=== PATIENT | male | born 1940 | race Caucasian/White ===

== ENCOUNTER 2016-08-30 17:22 | Observation (INO) | payer OTHER, MEDICARE ==
[~2016-08-30] VITALS: Ht 162.6 cm; Wt 120.8 kg
[2016-08-30] VITALS (8 sets, daily range): BP systolic 125–158; BP diastolic 36–64; PULSE 57–68; RESP 16–24; O2SAT 96–98
[2016-08-30 19:00] LABS: INR 1.86 ratio
[2016-08-30] MEDS ORDERED: Norepineph 8,000 mCg/250 mL NS 8,000 MCG in IV Premix 1 EACH IV SCH (20:06)
[2016-08-30 20:08] LABS: BASOPHILS % (AUTO) 0.2 % (0-3); EOSINOPHILS % (AUTO) 1.6 % (0-5); MONOCYTES % (AUTO) 12.5 % (4-12); Mean Corpuscular Hemoglobin 31.2 pg (27.0-35.0); Mean Corpuscular Volume 93.2 fL (81-100); NEUTROPHILS % (AUTO) 59.9 % (40-74); Platelet Count 364 bil/L (150-400)
--- NOTE | 2016-08-30 20:10 | ED.REPORT ---
HPI-Facial Injury Date of Service Aug 30, 2016 ED Provider: Calderon Williamson MD History of Present Illness: There is no template for nosebleed in the system, so this template was used. A 76 year old male with a medical history including CHF, sleep apnea on BiPAP, diabetes, hypertension, and atrial fibrillation on Coumadin s/p CABG presents to the ED with bilateral epistaxis onset spontaneously at 1500 this afternoon, while watching TV. The patient has had similar symptoms in the past associated with elevated Coumadin levels. The patient's last INR was measured two weeks ago at 2.8. The patient also reports recent cough and nasal congestion. He denies chest pain, dizziness, lightheadedness, or other symptoms. Nursing Notes Stated Complaint: NOSE BLEED/PT ON BLOOD THINNERS Chief Complaint: ENT & Mouth Nursing Notes Reviewed: Yes ([employer] not reconciled, on warfarin) Allergies: Coded Allergies: Penicillins (Verified Allergy, Unknown, 08/30/16) Scheduled Aspirin Chew (Aspirin Chew) 81 Mg Chew 81 MG PO DAILY Insulin Aspart (NovoLOG U100 Insulin Vial) 100 U/Ml U 15 UNIT SUBQ TIDWM Insulin Glargine (Lantus U100 Insulin Vial) 100 Unit/Ml Vial 60 UNIT SUBQ HS Warfarin Sodium (Warfarin Sodium) 5 Mg Tablet 5 MG PO DAILY General Time Seen by Provider: 19:51 Chief Complaint Nose bleed Hx Obtained From: Patient Arrived By: Walk-in Onset Occurred: 5 - 8 hours ago Symptom Duration: Since onset Severity: Current: No pain currently Severity: Maximum: No pain Immunizations: Unknown Recent Healthcare: No recent doctor visit Similar Sx Previous: Yes Past Medical History Past Medical History CHF Atrial Fibrillation on warfarin Sleep Apnea on BIPAP Reports: Diabetes mellitus, Hypertension Past Surgical History TURP 4 way CABG Spleenectomy Neck fusion Smoking History Unknown if Ever Smoker Social History Other Social History: Good social support Ambulatory Status Independent Review of Systems Constitutional: Denies: Fever Ears / Nose / Throat: Reports: Nasal congestion, Nose bleeding Neurologic: Denies: Dizziness, Lightheaded Complete sys rev & neg: except as marked. Respiratory: Reports: Non-productive cough, Denies: Shortness of breath Cardiovascular: Denies: Chest pain GI: Denies: Diarrhea, Vomiting Physical Exam Initial Vital Signs Vital Signs (First) Date Time Temp Pulse Resp B/P Pulse Ox O2 Delivery O2 Flow Rate FiO2 08/30/16 17:25 37.0 69 19 158/62 97 Room Air Initial VS: Reviewed, Vital signs normal (mild HTN) Respiratory: Breath sounds normal, Clear to auscultation, No respiratory distress Skin: Warm, Dry, No cyanosis Psychiatric: Mood/affect normal, Behavior normal, Normal thought content Head / Eyes: Atraumatic, Normocephalic ENT: Airway patent, Mucous membranes moist Dried blood present on both nostrils Both nostrils packed Left nare bleeding after removal of packing Neck: Supple, Full range of motion, No adenopathy Neurologic: Oriented X3, Speech NL, No motor deficits, No sensory deficits General/Constitutional: Awake, Alert Appearance / Presentation: Positive: Obese Cardiovascular: Heart rate NL, Heart sounds NL, No murmurs Heart Rate / Rhythm: Positive: Irregular rhythm Lower Ext Edema: Positive: Bilateral 2+ (With bilateral compression stockings) Interpretation & Diagnostics Lab Results Interpretation Result Diagram: 08/30/16182608/30/161826 Test 08/30/16 18:27 White Blood Count 12.8th/mm3 (3.8-10.1) Red Blood Count 4.58mil/mm3 (4.40-5.80) Hemoglobin 14.3g/dL (13.8-17.2) Hematocrit 42.7% (41.0-50.0) Mean Corpuscular Volume 93.2fL (81-100) Mean Corpuscular Hemoglobin 31.2pg (27.0-35.0) Mean Corpuscular Hemoglobin Concent 33.5% (32.0-37.0) Red Cell Distribution Width 14.5% (12.3-15.4) Platelet Count 364bil/L (150-400) Neutrophils (%) (Auto) 59.9% (40-74) Lymphocytes (%) (Auto) 25.6% (14-46) Monocytes (%) (Auto) 12.5% (4-12) Eosinophils (%) (Auto) 1.6% (0-5) Basophils (%) (Auto) 0.2% (0-3) Prothrombin Time 20.2sec (8.1-12.5) Prothromb Time International Ratio 1.86ratio Sodium Level 133mEq/L (134-144) Potassium Level 4.8mEq/L (3.5-5.2) Chloride Level 99mEq/L (97-108) Carbon Dioxide Level 20mmol/L (18-29) Blood Urea Nitrogen 21mg/dL (8-27) Creatinine 1.06mg/dL (0.76-1.27) Estimat Glomerular Filtration Rate 72mL/min (>59) Glucose Level 126mg/dL (60-99) Calcium Level 9.0mg/dL (8.5-10.1) Total Bilirubin 0.4mg/dL (0.0-1.2) Aspartate Amino Transf (AST/SGOT) 28U/L (0-50) Alanine Aminotransferase (ALT/SGPT) 22U/L (0-44) Alkaline Phosphatase 66U/L (25-160) Total Protein 7.6g/dL (6.4-8.4) Albumin 4.0g/dL (3.4-5.0) Hold Singleton Top Tube Received (Received) Lab Results Interpretation: C positive leukocytosis CMP normal INR elevated, technically subtherapeutic in setting of atrial fibrillation-however is coagulopathic in the setting of hemorrhage ECG Interpretation ECG Interpretation: Rate controlled atrial fibrillation at 59 No prior available for comparison Time: 20:59 Interpreted by: ED physician X-Ray Chest Interpretation Chest Xray Interpretation: no Acute disease or CHF is evident on my interpretation of the chest x-ray Interpretation / Wet Read by: Wet read ED physician Procedures Epistaxis Management Epistaxis Management: Bupivacaine .5% with Epinephrine Time: 20:40 Procedure Performed by: ED physician Consent / Setup / Site Prep: Consent from patient, Time-out performed, Pulse oximeter applied, Hand hygiene observed, Stand sterile technique Side and Location of Bleed: Nares both - unknown Post-Procedure / Complications: Bleeding stopped, No complications, Patient stable, Tolerated procedure well Re-Eval/Medical Decision Med Decision/Clinical Course This note and addendum was dictated as [employer] unlimited crashed entirely during the patient's ED stay This is a 76-year-old male with a history of CHF, chronic atrial ablation on warfarin, and sleep apnea who presents with acute onset of epistaxis from both nostrils earlier today. He is managing at a stop by stuffing packing in both nostrils, and has no additional complaints. Denies any recent trauma. Removal of the packing, the period there was some ongoing bleeding, and this improved with the application of oxymetazoline and bupivacaine with epinephrine via mucosal atomization device. Hemostasis was obtained. However the patient' s at high risk given his use of BiPAP, he is only anticoagulated secondary to a history of atrial fibrillation, and therefore is a candidate for temporary reversal so I will healing-given the strong risk of recurrence in the setting of CPAP use. However the patient's CHF history, the administration of FFP is going to be slow -and plan as an observation admission overnight. Case is discussed the hospitalist. Patient's admitted in stable condition He is to receive furosemide in between units of FFP. Source of Hx: Old records Re-Evaluation/Progress #1: Time of Eval: 20:40 Patient Status: Condition improved Re-Evaluation/Progress Note: Patient rechecked. Epistaxis management performed. Re-Evaluation/Progress #2: Time of Eval: 22:54 Patient Status: Condition improved Re-Evaluation/Progress Note: Discussed with patient lab results, diagnosis, and plan for admit. Patient agrees with plan for care and all questions were addressed. Consultation : Referral / Consult Name: Josiane Matute DO Consulted With: Hospitalist Call Returned at: 22:39 Finishing Manager: Agrees with eval, Agrees with plan, Accepts admit Counseled Regarding: Diagnosis, Lab results, Need for admission Discharge & Departure Impression: Primary Impression: Epistaxis Additional Impressions: Atrial fibrillation Atrial fibrillation type: chronic Qualified Code: I48.2 - Chronic atrial fibrillation Anticoagulated Bleeding on Coumadin Disposition: ADMITTED TO HOSPITAL Discharge Condition All VS Reviewed: Yes Condition: Improved Referrals: OTHER,PHYSICIAN (PCP) (Family) Scribe Attestation Portions of this note were transcribed by Janeth Mcguire. I, Dr. Williamson, personally performed the history, physical exam, and medical decision-making; I reviewed and confirmed the accuracy of the information in the transcribed note. Signed by: Charlene Mensah, 08/30/2016, 23:45 Calderon Williamson MD Aug 30, 2016 20:10 JANETH MCGUIRE Aug 30, 2016 20:44
[2016-08-30] MEDS ORDERED: Bupivacaine 0.5%/EPI 50 mL Inj ONE (20:12)
[2016-08-30] MEDS ORDERED: Furosemide 10 mg/mL 4 mL Inj IVPUSH ONE (22:30)
[2016-08-30] MEDS ORDERED: Alum-Mag Hydrox-Simeth 30 mL Suspension PO PRN (22:40)
[2016-08-30] MEDS ORDERED: Polyethylene Glycol (PEG) 17 Gm Powder PO PRN (22:40)
[2016-08-30] MEDS ORDERED: Ondansetron 2 mg/mL 2 mL Inj IVPUSH PRN (22:40)
[2016-08-30] MEDS ORDERED: INSU100V7 SUBQ (23:40)
[2016-08-30] MEDS ORDERED: WARF5TAB7 PO (23:41)
[2016-08-30] MEDS ORDERED: ASPI81TA3 PO (23:41)
[2016-08-30] MEDS ORDERED: INSU100C8 SUBQ (23:41)
[2016-08-31] VITALS (7 sets, daily range): BP systolic 147–179; BP diastolic 69–81; PULSE 60–87; RESP 18–20; O2SAT 95
--- NOTE | 2016-08-31 | ER ---
[address] [address] EMERGENCY DEPT ADMIT NOTE PATIENT: JACQUELINE BONDS : 1940 MR#: [id number] ADMIT: 08/30/2016 JOB ID: [id number] DATE: 08/30/2016 This is an addendum to the emergency department as the [facility] system is down and I am unable to access my previous records. BRIEF HISTORY: This is a 76-year-old male, anticoagulated on warfarin secondary to a history of atrial fibrillation who also has a history of congestive heart failure as well as sleep apnea requiring BiPAP at night. He developed a spontaneous nosebleed earlier this afternoon. This persisted for several hours. He denies any recent trauma, denies recent infection, and reports his INR was on the high end of normal at 2.8 in recent weeks, but he has not been particularly supratherapeutic. He denies other episodes of bleeding and has no additional complaints. PHYSICAL EXAMINATION: On exam, he is in no distress, he does have both nares plugged with blood-soaked gauze, but there is not active epistaxis initially, however, there is bleeding when the gauze is removed. The rest of the exam is notable for 2+ edema of the lower extremities and findings of mild congestive heart failure, he is in rate controlled atrial fibrillation. EMERGENCY DEPARTMENT COURSE: The patient received oxymetazoline plus bupivacaine with epinephrine via mucosal atomization device, with initial cessation of the bleeding, but is obviously at high risk given his use of BiPAP for recurrence. Given his only indication for the warfarin is atrial fibrillation, given active bleeding the plan is reversal. The patient's INR is subtherapeutic, but still enough to cause coagulopathy with an INR of 1.86-therefore the patient is receiving 2 units of FFP. He began the transfusion and started having just trace shortness of breath-he appeared well, had no ischemic findings on EKG, the rate was slowed and he received a dose of furosemide and continued to do well-but will require multiple hours to receive his FFP reversal and observation. He is therefore being admitted for continued management. The case has been discussed with the hospitalist. ADMISSION DIAGNOSES: 1. Epistaxis. 2. Coagulopathy secondary to anticoagulation with warfarin. 3. Chronic atrial fibrillation.
[2016-08-31 00:14] LABS: APPEARANCE,URINE CLEAR (CLEAR,HAZY); COLOR,URINE STRAW (YELLOW); OCCULT BLOOD,URINE NEGATIVE (NEGATIVE); UROBILINOGEN,URINE NORMAL (NORMAL)
--- NOTE | 2016-08-31 01:29 | NUR ---
Admit to 1008 Arrived from ED alert and fully oriented, complains of recent short term memory losses, will bring in med list in am. Able to ambulate safely to BR with SBA, some mild balance issues; per pt this is related to history of neck surgery. Denies pain. FFP infusing. Pt uses CPAP at home, will bring if staying more nights; pulse ox in place tonight. Oriented to hospital routines, plan of care, hourly rounding ongoing.
--- NOTE | 2016-08-31 02:41 | PCM.HPMED ---
Subjective Date of Service Aug 31, 2016 Primary Provider: Admitting Physician: Josiane Matute DO Primary Care Physician: Other,Physician Attending Physician: Josiane Matute DO Admit Status: From the Emergency Department Chief Complaint: epistaxis History of Present Illness: 76yoM with past medical history of CAD s/p CABG, CHF, atrial fibrillation on coumadin, ROWDY using bipap, DM and HTN presented with 3 episodes of epistaxis while at home. Patient states that he was watching TV the afternoon prior to admission when he began to have issues with his nose bleeding. In previous interview states that he has had similar difficulties in the past like this while anticoagulated but when asked following admission patient denied prior epistaxis. He was able to stop the bleeding the first two times but the third time he decided to come to the emergency department for further evaluation. Bleeding was successfully stopped with oxymetazoline plus bupivacaine with epinephrine. Given patient is at high risk for rebleed d/t use of bipap patient was admitted. He denies any associated symptoms at this time and only endorses a chronic cough which has been present for 2-3 months. Review of Systems: complete review of systems obtained. positive as per hpi otherwise negative Allergies Coded Allergies: Penicillins (Verified Allergy, Unknown, 08/30/16) Home Medications medication rec pending. to bring in medications partial list Glargine 60 units every evening ASA Warfarin PMH CHF Atrial Fibrillation on warfarin Sleep Apnea on BIPAP Diabetes mellitus Hypertension CAD Surgical History TURP 4 way CABG Splenectomy Neck fusion Cholecystectomy Family History No family history of bleeding / clotting disorders Mother: DM Father: CAD, MD, BPH Social History Occupation: retired Hx Alcohol Use: No Hx Substance Use: No Smoking Status: Former Smoker Living Arrangement: with Family (lives with and granddaughter) Exam Vital Signs Vital Sign - Last Date Time Temp Pulse Resp B/P Pulse Ox O2 Delivery O2 Flow Rate FiO2 08/31/16 00:57 60 08/31/16 00:39 36.4 20 179/69 95 Room Air Intake and Output 08/30/16 08/30/16 08/31/16 Cumulative From/Thru 15:00 23:00 07:00 08/30/16 17:25 - 08/31/16 00:40 Intake Total 191 ml 191 ml Output Total 525 ml 525 ml Balance -334 ml -334 ml Intake IV Total 191 ml 191 ml Output Urine Total 525 ml 525 ml Exam General: Alert, Oriented X3, Cooperative, No acute Distress Eyes: PERRLA, Scleral Anicteric Mouth: Mouth Normal, Mucous Membranes Moist/[place] Neck: Supple, no Thyromegaly, trachea central. Chest & Lungs: Clear to auscultation & percussion, No adventitious breath sounds, no crackles, no wheeze Cardiovascular: Normal S1, Normal S2, No Murmurs/Rubs/Gallops, Regular Rate/ Rhythm, Murmur, Pulses: Radial (present and equal), Dorsalis Pedi (present and equal) Abdomen: Soft, Non-tender, Non-distended, Normoactive bowel tones. Musculoskeletal: Unremarkable. Normal range of motion, no swollen or erythematous joints Extremities: 0-1+ pitting edema bilaterally, no cyanosis, no clubbing. Skin: No rashes. Warm and dry, no erythematous areas Neurological: Grossly neurologically intact, Normal Speech, Sensation Intact Lymphatic: Lymph nodes Cervical and Axillary not palpable. Lab and Diagnostics Result Diagram: 08/30/16182608/30/161826 Assessment & Plan 76yoM with past medical history of CAD s/p CABG, CHF, atrial fibrillation on coumadin, ROWDY using bipap, DM and HTN presented with 3 episodes of epistaxis while at home. Epistaxis, acute, POA -controlled in ED -2 units FFP given in ED -admit for observation -repeat INR in am - will likely increase following FFP admin -holding warfarin for now Atrial fibrillation, chronic -patient on warfarin at home -decision will need to be made regarding continuation of warfarin -repeat INR pending with am labs CAD, chronic -continue ASA -home meds pending list from ROWDY, chronic -on bipap at home - to bring from home if remains in hospital Diabetes Type II, insulin dependent, chronic -patient currently controlled with insulin -takes 15units preprandial and 60units glargine every evening, continue glargine -medium dose SSI HTN, chronic -continue medications as appropriate when med rec complete Pain Evaluation: Adequate Pain Control GI Prophylaxis: Not indicated VTE Prophylaxis Indicated: Contraindicated VTE Prophylaxis: SCDs VTE Mechanical Devices: Anti-Embolic stockings Resuscitation Status: CPR: Attempt Resuscitation Josiane Matute DO Aug 31, 2016 02:41
[2016-08-31] MEDS ORDERED: Glucose 40% Oral Gel 15 Gm Tube PO PRN (03:45)
[2016-08-31 06:38] LABS: BASOPHILS % (AUTO) 0.2 % (0-3); EOSINOPHILS % (AUTO) 1.7 % (0-5); MONOCYTES % (AUTO) 11.8 % (4-12); Mean Corpuscular Hemoglobin 31.4 pg (27.0-35.0); Mean Corpuscular Volume 93.9 fL (81-100); NEUTROPHILS % (AUTO) 65.8 % (40-74); Platelet Count 315 bil/L (150-400)
[2016-08-31 07:15] LABS: INR 1.4 ratio
[2016-08-31] MEDS: Insulin LISPRO 300 Unit/3 mL Inj SUBQ SCH ×4 (08:35→22:40)
--- NOTE | 2016-08-31 09:28 | DRSVH ---
PROCEDURE: X-RAY CHEST ONE VIEW, PORTABLE ([id number]) INDICATIONS: CONGESTIVE HEART FAILURE TECHNIQUE: One view of the chest was acquired. COMPARISON: None. FINDINGS: Surgical changes and devices: Lower cervical spine fixation hardware and median sternotomy wires. Lungs and pleura: No pleural effusions or pneumothorax. Diffuse bilateral interstitial opacities ar e present of unclear chronicity. Mediastinum: Mediastinal contours appear normal. Heart size is enlarged. Bones and chest wall: No suspicious bony lesions. Overlying soft tissues appear unremarkable. IMPRESSION: Interstitial opacities of unclear acuity. Acute CHF cannot be excluded and clinical elio elation is recommended. Dictated by: Raphael Shea [facility] Interpreted: Pam Cannon MD on 08/31/2016 at 9:27 Transcribed by: DAREN on 08/31/2016 at 9:28 Approved by: Pam Cannon M.D. on 09/02/2016 at 16:03
--- NOTE | 2016-08-31 10:24 | PCM.DIMED ---
Discharge Instructions Date of Service Aug 31, 2016 Dates of Hospitalization Aug 30, 2016 at 22:27 Discharge Diagnosis Discharge Diagnosis minor episode of Epistaxis in the setting of aspirin, coumadin use Medication Instructions please hold aspirin and Coumadin given your recurrent bleeding. \ Diet No restrictions Activity No restrictions Patient Instructions You were hospitalized with episode of bleeding, resolved with treatment, but recurrent during hospitalization. Please note that options are limited to stop the bleeding completely in the hospital. Therefore, You were scheduled to see Dr.Gary Kimbrough at [facility] at 3:40pm, . Please note that you have to hold coumadin and aspirin tonight, and follow up with ENT doctor tomorrow. Follow-up plan Please see your doctor in [facility] in next week. Follow-up Provider: ALIRIO-JOSE [facility]SU Follow-up with PCP in: 1 week Provider: Frandy Kimbrough MD Follow-up in: Other (tomorrow) Ruthie Conway MD Aug 31, 2016 10:24
--- NOTE | 2016-08-31 11:41 | NUR ---
Social Work- Initial Assessment Data: See Initial Assessment. Pt is a 76 year old male admitted 08/30/16 or epistaxis per H&P. Pt's insurance is [employer] and [employer] Pt's PCP is Jono Blevins MD at the [facility]. GUILHERME met with patient and family at bedside regarding discharge planning, SW role explained. Pt alert and oriented x3. Pt resides in [place] with his and granddaughter where he remains independent with his ADLs. Pt uses no DME and does not drive. Pt has no HH or SNF history. Pt has LTC insurance and VA benefits. SW spoke with pt regarding DPOA, encouraged pt to complete paperwork. Pt to discharge home with to transport via POV. SW left phone number on whiteboard. No anticipated discharge needs. SW will continue to follow. Assessment: Pt who is independent at base. Plan: Pt to discharge home with to transport via POV. No anticipated discharge needs. GUILHERME will continue to follow. CHRISTY Girffith Addendum: 08/31/16 at 1144 by VIPUL DAWKINS Amended: Links added.
--- NOTE | 2016-08-31 11:45 | NUR ---
Social Work- Discharge Data: EMR reviewed. Pt is on day 1 of hospitalization for epistaxis per H&P. Pt to discharge today. Pt to discharge home with to transport via POV. No discharge needs. Assessment: Pt who is independent at base. Plan: Pt to discharge home with to transport via POV. No discharge needs. CHRISTY Griffith
[2016-08-31] MEDS ORDERED: Phytonadione (Adult) 10 mg/1 mL Inj PO ONE (15:40)
--- NOTE | 2016-08-31 20:28 | NUR ---
Epistaxis Patient was to be discharged home today but then developed epistaxis again after blowing his nose. Bleeding was difficult to stop and when I checked his gauze packing his nose started to bleed again. Patient repack per Dr's orders with Afrin soaked gauze. Patient has moderate amount bleeding noted but has stopped currently so packing not touched at this time. Oncoming nurse will monitoring any further bleeding. Patient has appointment with ENT tomorrow.
[2016-08-31] MEDS ORDERED: Insulin GLARgine 100 Unit/mL Syringe SUBQ SCH (21:00)
[2016-09-01 04:02] VITALS: BP 164/77; PULSE 75; RESP 20; O2SAT 96
--- NOTE | 2016-09-01 04:52 | NUR ---
epistaxis the packing that was placed in pts nose by dayshift yesterday has been left in place. the packing in the R nares does appear saturated but there has not appeared to be any new bleeding this shift. Nurse did not remove packing as pt was afraid that would dislodge the clot and start the bleeding again. will continue to monitor.
[2016-09-01 06:19] LABS: BASOPHILS % (AUTO) 0.3 % (0-3); EOSINOPHILS % (AUTO) 2.2 % (0-5); MONOCYTES % (AUTO) 12.7 % (4-12); Mean Corpuscular Hemoglobin 31.4 pg (27.0-35.0); Mean Corpuscular Volume 94.5 fL (81-100); NEUTROPHILS % (AUTO) 61.4 % (40-74); Platelet Count 320 bil/L (150-400)
[2016-09-01 06:33] LABS: INR 1.22 ratio
[2016-09-01] MEDS: Insulin LISPRO 300 Unit/3 mL Inj SUBQ SCH (08:00)
--- NOTE | 2016-09-01 15:04 | PCM.PNMED ---
Subjective Date of Service Aug 31, 2016 Subjective pt had recurrent nose bleeding, packed with sterile gauze with afrin Exam Vital Signs Vital Sign - Last Date Time Temp Pulse Resp B/P Pulse Ox O2 Delivery O2 Flow Rate FiO2 08/31/16 13:33 36.3 66 18 168/81 95 Room Air Intake and Output 08/30/16 08/30/16 08/31/16 Cumulative From/Thru 15:00 23:00 07:00 08/30/16 17:25 - 08/31/16 06:40 Intake Total 1206 ml 1206 ml Output Total 1675 ml 1675 ml Balance -469 ml -469 ml Intake Oral 800 ml 800 ml IV Total 191 ml 191 ml FFP 215 ml 215 ml Output Urine Total 1675 ml 1675 ml # Bowel Movements 0 0 Exam comfortable, NAD MMM, no JVD, no LAD RRR, nl s1 s2 no mrg CTAB, no w,c S,ND,NT,BS+ warm, no edema bilateral nostril-packed IVs and Medications Medications Reviewed: Medications were reviewed in detail Lab and Diagnostics Result Diagram: 08/31/16 0616 08/31/16 0616 Assessment & Plan 76yoM with past medical history of CAD s/p CABG, CHF, atrial fibrillation on coumadin, ROWDY using bipap, DM and HTN presented with 3 episodes of epistaxis while at home. Epistaxis, acute, POA -controlled in ED -2 units FFP given in ED -admit for observation -repeat INR in am - will likely increase following FFP admin -holding warfarin for now Atrial fibrillation, chronic -patient on warfarin at home -decision will need to be made regarding continuation of warfarin -repeat INR pending with am labs CAD, chronic -continue ASA -home meds pending list from ROWDY, chronic -on bipap at home - to bring from home if remains in hospital Diabetes Type II, insulin dependent, chronic -patient currently controlled with insulin -takes 15units preprandial and 60units glargine every evening, continue glargine -medium dose SSI HTN, chronic -continue medications as appropriate when med rec complete GI Prophylaxis: Not indicated VTE Prophylaxis: SCDs VTE Mechanical Devices: Intermittant Pneumatic CD Resuscitation Status: CPR: Attempt Resuscitation Time spent 35min Ruthie Conway MD Aug 31, 2016 15:43
--- NOTE | 2016-09-01 15:08 | NUR ---
Discharge Patient discharged home with . Patient to follow up with ENT Dr today at 3:40 pm. Patient given verbal and written home care instructions and agreed to understanding them. Pt still gauze packing to left nostril and this was left in place for ENT to remove . Pt will also follow up with primary Dr in 1 week. No new Meds.
--- NOTE | 2016-09-01 15:17 | PCM.DC.MED ---
Discharge Summary Date of Service Sep 01, 2016 Dates of Hospitalization Date of Hospital Admission Aug 30, 2016 at 22:27 Date of Discharge: Sep 01, 2016 Providers: Admitting Physician: Josiane Matute DO Primary Care Physician: Other,Physician Attending Physician: Josiane Matute DO Diagnosis at Time of Discharge Diagnosis at Time of Discharge acute problems 1.minor episode of Epistaxis in the setting of aspirin, coumadin use chronic problems 2.Atrial fibrillation 3.CAD, 4.ROWDY, 5.Diabetes Type II 6.HTN, Consultations ENT Dr.Gary Kimbrough. Procedures XRay, CTs & MRIs PROCEDURE: X-RAY CHEST ONE VIEW, PORTABLE ([id number]) INDICATIONS: CONGESTIVE HEART FAILURE TECHNIQUE: One view of the chest was acquired. COMPARISON: None. FINDINGS: Surgical changes and devices: Lower cervical spine fixation hardware and median sternotomy wires. Lungs and pleura: No pleural effusions or pneumothorax. Diffuse bilateral interstitial opacities are present of unclear chronicity. Mediastinum: Mediastinal contours appear normal. Heart size is enlarged. Bones and chest wall: No suspicious bony lesions. Overlying soft tissues appear unremarkable. IMPRESSION: Interstitial opacities of unclear acuity. Acute CHF cannot be excluded and clinical correlation is recommended. Dictated by: Raphael Shea RRMartha Interpreted: Pam Cannon MD on 08/31/2016 at 9:27 Transcribed by: DAREN on 08/31/2016 at 9:28 Brief History HPI obtained by on 08/30 76yoM with past medical history of CAD s/p CABG, CHF, atrial fibrillation on coumadin, ROWDY using bipap, DM and HTN presented with 3 episodes of epistaxis while at home. Patient states that he was watching TV the afternoon prior to admission when he began to have issues with his nose bleeding. In previous interview states that he has had similar difficulties in the past like this while anticoagulated but when asked following admission patient denied prior epistaxis. He was able to stop the bleeding the first two times but the third time he decided to come to the emergency department for further evaluation. Bleeding was successfully stopped with oxymetazoline plus bupivacaine with epinephrine. Given patient is at high risk for rebleed d/t use of bipap patient was admitted. He denies any associated symptoms at this time and only endorses a chronic cough which has been present for 2-3 months. Hospital Course 76yoM with past medical history of CAD s/p CABG, CHF, atrial fibrillation on coumadin, ROWDY using bipap, DM and HTN presented with 3 episodes of epistaxis while at home. 1.Epistaxis, acute, POA pt was admitted with recurrent epistaxis, likely in the setting of aspirin and Coumadin use. Pt received 2uinits of FFP then bleeding spontaneously stopped.However, on the following day pt had another episode, so vitK 3mg po given, follow up INR upon discharge was 1.22.initially1.86. Patient case was discussed with [facility] to see patient in the office on the day of discharge. Nasal packing applied and didn't show any active signs of bleeding. h/h remained stable, pt was hypodermically stable. Patient was recommended to hold aspirin and coumadin for now until complete resolution of epistaxis. 2.Atrial fibrillation, chronic, patient on warfarin at home, held as above 3.CAD, chronic, held aspirin on the day of d/c. 4.ROWDY, stable 5.Diabetes Type II, insulin dependent, controlled with home insulin. 6.HTN, stable Exam Vital Signs (Last) Date Time Temp Pulse Resp B/P Pulse Ox O2 Delivery O2 Flow Rate FiO2 09/01/16 04:02 36.5 75 20 164/77 96 Room Air Exam NAD, comfortably laying down on the bed packed with Gauze on both nare, no active bleeding. no JVD, MMM, no LAD RRR, nl s1, s2 no mrg CTAB, no w,c S,ND,NT,normoactive BS+ warm, no edema, pulses 2/2 Test 08/30/16 18:27 08/30/16 23:30 08/31/16 03:00 08/31/16 06:16 Total Bilirubin 0.4mg/dL (0.0-1.2) Aspartate Amino Transf (AST/SGOT) 28U/L (0-50) Alanine Aminotransferase (ALT/SGPT) 22U/L (0-44) Alkaline Phosphatase 66U/L (25-160) Total Protein 7.6g/dL (6.4-8.4) Albumin 4.0g/dL (3.4-5.0) Hold Singleton Top Tube Received (Received) Urine Color Straw (YELLOW) Urine Appearance Clear (CLEAR,HAZY) Urine pH 6.0 (5.0-8.0) Urine Specific Geraldine 1.010 (1.003-1.035) Urine Protein Negativemg/dL (NEG,TRACE) Urine Glucose (UA) Negativemg/dL (NEGATIVE) Urine Ketones Negativemg/dL (NEGATIVE) Urine Occult Blood Negative (NEGATIVE) Urine Nitrite Negative (NEGATIVE) Urine Bilirubin Negative (NEGATIVE) Urine Urobilinogen Normalmg/dL (NORMAL) Urine Leukocyte Esterase Negative (NEGATIVE) Urine RBC 0-2/hpf (0-2) Urine WBC 0-5/hpf (0-5) Urine Epithelial Cells Occasional/hpf (NONE-MOD) Urine Crystals None seen (NONE SEEN) Urine Bacteria Few/hpf (NONE-FEW) Urine Hyaline Casts None/lpf (NONE) Urine Granular Casts None seen (NONE SEEN) Urine Waxy Casts None seen (NONE SEEN) Urine Red Blood Cell Casts None seen (NONE SEEN) Urine White Blood Cell Casts None seen (NONE SEEN) Urine Mucus None seen (None Seen) Urine Trichomonas None seen (NONE SEEN) Urine Yeast None (NONE SEEN) Urinalysis Comment None Urine Culture Reflexed Not indicated Hold Urine Received (Received) Sodium Level 137mEq/L (134-144) Potassium Level 5.3mEq/L (3.5-5.2) Chloride Level 102mEq/L (97-108) Carbon Dioxide Level 21mmol/L (18-29) Blood Urea Nitrogen 22mg/dL (8-27) Creatinine 1.15mg/dL (0.76-1.27) Estimat Glomerular Filtration Rate 66mL/min (>59) Glucose Level 302mg/dL (60-99) Calcium Level 9.0mg/dL (8.5-10.1) Test 09/01/16 05:45 White Blood Count 11.6th/mm3 (3.8-10.1) Red Blood Count 4.52mil/mm3 (4.40-5.80) Hemoglobin 14.2g/dL (13.8-17.2) Hematocrit 42.7% (41.0-50.0) Mean Corpuscular Volume 94.5fL (81-100) Mean Corpuscular Hemoglobin 31.4pg (27.0-35.0) Mean Corpuscular Hemoglobin Concent 33.3% (32.0-37.0) Red Cell Distribution Width 14.5% (12.3-15.4) Platelet Count 320bil/L (150-400) Neutrophils (%) (Auto) 61.4% (40-74) Lymphocytes (%) (Auto) 23.2% (14-46) Monocytes (%) (Auto) 12.7% (4-12) Eosinophils (%) (Auto) 2.2% (0-5) Basophils (%) (Auto) 0.3% (0-3) Prothrombin Time 13.1sec (8.1-12.5) Prothromb Time International Ratio 1.22ratio Discharge Medications Discharge Medications Insulin Aspart (NovoLOG U100 Insulin Vial) 100 U/Ml U 15 UNIT SUBQ TIDWM ( Reported) Insulin Glargine (Lantus U100 Insulin Vial) 100 Unit/Ml Vial 60 UNIT SUBQ HS ( Reported) Additional med instructions please hold aspirin and Coumadin given your recurrent bleeding. \ Followup Plan Disposition: home Follow-up plan Please see your doctor [facility] in next week. Discharge Diet: No restrictions Discharge Activity: No restrictions Patient Instructions You were hospitalized with episode of bleeding, resolved with treatment, but recurrent during hospitalization. Please note that options are limited to stop the bleeding completely in the hospital. Therefore, You were scheduled to see Dr.Gary Kimbrough at [facility] at 3:40pm, . Please note that you have to hold coumadin and aspirin tonight, and follow up with ENT doctor tomorrow. Follow-up Provider: [facility] Follow-up with PCP in: 1 week Provider: Frandy Kimbrough MD Follow-up in: Other (tomorrow) Time spent 65min Ruthie Conway MD Sep 01, 2016 15:17
== END 2016-09-01 11:45 | disposition home or self-care (01) ==
LOC: SED 17:22 → OSC 22:27
PROVIDERS: ADMIT Internal Medicine; ATTEND Internal Medicine
DX: R04.0 Epistaxis (principal); I48.2 Chronic atrial fibrillation; I25.10 Atherosclerotic heart disease of native coronary artery without angina pectoris; G47.33 Obstructive sleep apnea (adult) (pediatric); E11.9 Type 2 diabetes mellitus without complications; I10 Essential (primary) hypertension; I50.9 Heart failure, unspecified; Z79.01 Long term (current) use of anticoagulants; Z95.1 Presence of aortocoronary bypass graft; Z88.0 Allergy status to penicillin; Z79.82 Long term (current) use of aspirin; Z79.4 Long term (current) use of insulin
CPT/HCPCS: 30901; 36415; 36430; 71010; 80048; 80053; 81000; 82948; 85025; 85610; 86850; 86927; 93005; 96374; 99285; G0378; J1815; J1940; J3430; P9021

== ENCOUNTER 2016-09-09 19:53 | Emergency (ER) | payer OTHER, MEDICARE ==
[~2016-09-09] VITALS: Ht 162.6 cm; Wt 125.5 kg
[~2016-09-09 19:53] MED LIST: INSU100C8 SUBQ; INSU100V7 SUBQ
[2016-09-09 20:02] VITALS: BP 161/50; PULSE 73; RESP 22; O2SAT 97
--- NOTE | 2016-09-09 20:23 | ED.REPORT ---
HPI-General Illness Date of Service Sep 09, 2016 ED Provider: Nic Wolfe MD Patient is a 76 year old male who presents to the ED after being referred by his doctor at the [facility] for a potassium of 6.2. His medications were stopped when he was hospitalized recently so he was getting routine follow up labs. His only complaints are bilateral knee pain and generalized weakness. He denies chest pain, nausea, or any other symptoms. He was hospitalized for 3 days last week for epistaxis on Coumadin. Medications have been obtained and reviewed. He is prescribed spironolactone and chlorthalidone but it is suspected he has not taken either of these since his discharge. Nursing Notes Stated Complaint: POTASSIUM 6.2 SENT BY DOCTOR Chief Complaint: General Complaint Nursing Notes Reviewed: Yes Allergies: Coded Allergies: Penicillins (Verified Allergy, Unknown, 08/30/16) Scheduled Insulin Aspart (NovoLOG U100 Insulin Vial) 100 U/Ml U 15 UNIT SUBQ TIDWM Insulin Glargine (Lantus U100 Insulin Vial) 100 Unit/Ml Vial 60 UNIT SUBQ HS General Time Seen by MD: 20:12 Chief Complaint Other (High potassium) Hx Obtained From: Patient, Other family... Arrived By: Walk-in Recent Healthcare: Recent doctor visit Similar Sx Previous: No Past Medical History Past Medical History CHF Atrial Fibrillation on warfarin Sleep Apnea on BIPAP Diverticulitis Reports: Cancer (Prostate ), Coronary artery disease, Diabetes mellitus, Hypertension Past Surgical History TURP 4 way CABG Spleenectomy Neck fusion Reports: Cholecystectomy Smoking History Former Smoker Social History Other Social History: Good social support Ambulatory Status Independent Review of Systems Full Review of Systems Constitutional: Reports: Weakness - generalized, Denies: Fever Cardiovascular: Denies: Chest pain GI: Denies: Nausea Musculoskeletal: Reports: Joint pain (Bilat knees ) Complete sys rev & neg: except as marked. Physical Exam Vital Signs Vital Signs Date Time Temp Pulse Resp B/P Pulse Ox O2 Delivery O2 Flow Rate FiO2 09/09/16 22:59 84 23 169/88 97 Room Air 09/09/16 20:02 73 22 161/50 97 Room Air Initial VS: Reviewed General/Constitutional: Well-developed, Well-nourished Head / Eyes: Atraumatic, Normocephalic Neck: Supple Abdomen / GI: Soft, Non-tender Skin: Warm, Dry Neurologic: Alert, Oriented, Nonfocal Psychiatric: Mood/affect normal, Behavior normal, Normal thought content Respiratory / Chest: Breath sounds NL, Breath sounds = bilat, No respiratory distress midline thoracotomy scar Cardiovascular: Heart rate NL, Regular rhythm, Heart sounds NL, No gallop, No murmurs, No rubs Interpretation & Diagnostics Lab Results Interpretation Result Diagram: 09/09/16201909/09/16 2020 Test 09/09/16 20:20 White Blood Count 13.8th/mm3 (3.8-10.1) Red Blood Count 4.58mil/mm3 (4.40-5.80) Hemoglobin 14.4g/dL (13.8-17.2) Hematocrit 42.6% (41.0-50.0) Mean Corpuscular Volume 93.0fL (81-100) Mean Corpuscular Hemoglobin 31.4pg (27.0-35.0) Mean Corpuscular Hemoglobin Concent 33.8% (32.0-37.0) Red Cell Distribution Width 14.6% (12.3-15.4) Platelet Count 293bil/L (150-400) Neutrophils (%) (Auto) 63.3% (40-74) Lymphocytes (%) (Auto) 23.7% (14-46) Monocytes (%) (Auto) 10.9% (4-12) Eosinophils (%) (Auto) 1.7% (0-5) Basophils (%) (Auto) 0.1% (0-3) Sodium Level 132mEq/L (134-144) Potassium Level 5.9mEq/L (3.5-5.2) Chloride Level 99mEq/L (97-108) Carbon Dioxide Level 19mmol/L (18-29) Blood Urea Nitrogen 26mg/dL (8-27) Creatinine 1.37mg/dL (0.76-1.27) Estimat Glomerular Filtration Rate 54mL/min (>59) Glucose Level 300mg/dL (60-99) Calcium Level 9.0mg/dL (8.5-10.1) Total Bilirubin 0.4mg/dL (0.0-1.2) Aspartate Amino Transf (AST/SGOT) 24U/L (0-50) Alanine Aminotransferase (ALT/SGPT) 23U/L (0-44) Alkaline Phosphatase 78U/L (25-160) Total Protein 7.6g/dL (6.4-8.4) Albumin 4.0g/dL (3.4-5.0) Hold Singleton Top Tube Received (Received) ECG Interpretation ECG Interpretation: Afib rate 70 RBBB No peaked T-waves No change from prior Time: 20:15 Interpreted by: ED physician Re-Eval/Medical Decision Time of Eval: 21:35 Re-Evaluation/Progress Note: Rechecked patient. Discussed lab results and need to review med list. Time of Eval: 22:36 Re-Evaluation/Progress Note: Rechecked patient. Discussed plan for discharge. Patient understands and agrees with plan. All questions addressed at this time. Consultation : Referral / Consult Name: Hieu Villagomez DO Consulted With: Nephrology Call Returned at: 21:38 Note: Discussed patient's case. Suggests start pt on Chlorthalidone for diuretic and give dose of Kayexalate and Follow up with PCP Counseled Regarding: Diagnosis, Lab results, Need for follow-up, When/why to return to ED Discharge & Departure Primary Impression: Hyperkalemia Disposition: Home Discharge Condition All VS Reviewed: Yes Condition: Stable Additional Instructions: Emergency department evaluation tonight included interview, examination, ECG, labs and review of past records. Potassium tonight was found to be 5.9, this is outside of the normal range but not felt to be dangerous. We discussed your case with a oil spot washer, (a kidney doctor). Recommendation is for you to be on chlorthalidone 25 mg daily. This is a medication your on previously but had stopped after leaving the hospital recently. Restart it, a dose was given in the emergency department tonight. Stop spironolactone. This is a medication your on previously also but can cause increased potassium. Take the dose of Kayexalate provided. Follow-up with your primary care doctor tomorrow as planned for recheck. Follow up with your primary doctor tomorrow. Have your potassium rechecked and closely review your medication list. Return to emergency department for chest pain shortness of breath or severe weakness. Referrals: OTHER,PHYSICIAN (PCP) (Family) Scribe Attestation Portions of this note were transcribed by Helene King. I, Dr. Wolfe personally performed the history, physical exam and medical decision-making; I reviewed and confirmed the accuracy of the information in the transcribed note. Signed by: Helene King 09/09/16, 2247 Nic Wolfe MD Sep 09, 2016 20:23 HELENE KING Sep 09, 2016 20:31
[2016-09-09 20:36] LABS: BASOPHILS % (AUTO) 0.1 % (0-3); EOSINOPHILS % (AUTO) 1.7 % (0-5); MONOCYTES % (AUTO) 10.9 % (4-12); Mean Corpuscular Hemoglobin 31.4 pg (27.0-35.0); NEUTROPHILS % (AUTO) 63.3 % (40-74); Platelet Count 293 bil/L (150-400)
[2016-09-09 22:59] VITALS: BP 169/88; PULSE 84; RESP 23; O2SAT 97
== END 2016-09-09 22:53 | disposition home or self-care (01) ==
LOC: SED 19:53
DX: E87.5 Hyperkalemia (principal); M25.561 Pain in right knee; M25.562 Pain in left knee; R53.1 Weakness; I50.9 Heart failure, unspecified; I48.91 Unspecified atrial fibrillation; I25.10 Atherosclerotic heart disease of native coronary artery without angina pectoris; E11.9 Type 2 diabetes mellitus without complications; I10 Essential (primary) hypertension; Z85.46 Personal history of malignant neoplasm of prostate